=== PATIENT | male | born 1995 | race Caucasian/White ===

== ENCOUNTER 2017-03-14 23:15 | Emergency (ER) | payer OTHER ==
[~2017-03-14 23:15] MED LIST: BENZ200C39 PO
[2017-03-14 23:25] VITALS: BP 146/80
[2017-03-14] MEDS ORDERED: PRED50TA PO (23:48)
[2017-03-14] MEDS ORDERED: FAMO-63 PO (23:48)
[2017-03-14] MEDS ORDERED: DIPH25CA58 PO (23:48)
--- NOTE | 2017-03-14 23:49 | PHYS DOC ---
Past Medical History Past Medical History: Constipation, Diabetes-Type II, GERD, High Cholesterol, Hypertension Additional Past Medical Histor: Knee pain, Seasonal Allergies, ADHD Past Surgical History: Other Additional Past Surgical Histo: RIGHT KNEE SURGERY Alcohol Use: None Drug Use: None Adult General Chief Complaint Chief Complaint: SKIN PROBLEM HPI HPI Patient is a 21 year old male with history of high cholesterol, hypertension, diabetes type 2, who presents today with a rash that began yesterday after he got started on Niacin for high cholesterol. Patient denies any difficulty breathing, denies any tongue or throat swelling. PCP Dr. Denisse Amaya Review of Systems Review of Systems Constitutional: Denies fever or chills [] Eyes: Denies change in visual acuity, redness, or eye pain [] HENT: Denies nasal congestion or sore throat [] Respiratory: Denies cough or shortness of breath [] Cardiovascular: No additional information not addressed in HPI [] GI: Denies abdominal pain, nausea, vomiting, bloody stools or diarrhea [] : Denies dysuria or hematuria [] Musculoskeletal: Denies back pain or joint pain [] Integument: rash Neurologic: Denies headache, focal weakness or sensory changes [] Endocrine: Denies polyuria or polydipsia [] Current Medications Current Medications Current Medications Medications (Trade) Dose Ordered Sig/[place] Start Time Stop Time Status Last Admin Dose Admin Dexamethasone Sodium Phosphate (Decadron) 10 mg 1X ONCE 03/14/17 23:45 03/14/17 23:46 UNV Diphenhydramine HCl (Benadryl) 25 mg 1X ONCE 03/14/17 23:45 03/14/17 23:46 UNV Famotidine (Pepcid) 20 mg 1X ONCE 03/14/17 23:45 03/14/17 23:46 UNV Allergies Allergies Allergies Coded Allergies Type Severity Reaction Last Updated Verified No Known Drug Allergies 07/11/16 No Physical Exam Physical Exam Constitutional: Well developed, well nourished, no acute distress, non-toxic appearance. [] HENT: Normocephalic, atraumatic, bilateral external ears normal, oropharynx moist, no oral exudates, nose normal. [] Eyes: PERRLA, EOMI, conjunctiva normal, no discharge. [] Neck: Normal range of motion, no tenderness, supple, no stridor. [] Cardiovascular:Heart rate regular rhythm, no murmur [] Lungs & Thorax: Bilateral breath sounds clear to auscultation [] Abdomen: Bowel sounds normal, soft, no tenderness, no masses, no pulsatile masses. [] Skin: Patient has erythema on face, bilateral upper extremities and lower extremities. Back: No tenderness, no CVA tenderness. [] Extremities: No tenderness, no cyanosis, no clubbing, ROM intact, no edema. [] Neurologic: Alert and oriented X 3, normal motor function, normal sensory function, no focal deficits noted. [] Psychologic: Affect normal, judgement normal, mood normal. [] Current Patient Data Vital Signs Vital Signs Date Time Temp Pulse Resp B/P (MAP) Pulse Ox O2 Delivery O2 Flow Rate FiO2 03/14/17 23:25 97.4 110 18 99 Room Air 97.4 EKG EKG [] Radiology/Procedures Radiology/Procedures [] Course & Med Decision Making Course & Med Decision Making Pertinent Labs and Imaging studies reviewed. (See chart for details) Patient has a rash that began yesterday after being started on Niacin. He was given Benadryl and Decadron and famotidine in the ED. He was discharged with prednisone, Benadryl, and Pepcid. He was instructed not to take Niacin instructed to contact his own doctor on Thursday and let her know he had an allergic reaction to Niacin. Dragon Disclaimer Dragon Disclaimer This electronic medical record was generated, in whole or in part, using a voice recognition dictation system. Departure Departure Impression: Primary Impression: Allergic reaction caused by a drug Disposition: HOME, SELF-CARE Condition: STABLE Referrals: BONNIE AMAYA MD (PCP) Call your doctor on Thursday and let her know you had an allergic reaction to Niacin Patient Instructions: Drug Allergy, [id number] Additional Instructions: You were seen with an allergic reaction to niacin. Do not take it anymore. Contact your doctor on Thursday let her know you had an, allergic reaction to Niacin. Take Benadryl every 4 hours until the rash clears up, take Pepcid every day until the rash clears up, complete your prednisone. Come back to the ED at any point symptoms worsen or you have new concerning symptoms. Scripts Diphenhydramine Hcl (BENADRYL) 25 Mg Capsule 1 CAP PO Q4HRS W/A Y for RASH, #30 CAP 1 Refill Prov: ALEXA DIAMOND APRN 03/14/17 Prednisone (PREDNISONE) 50 Mg Tablet 1 TAB PO DAILY, #5 TAB Prov: ALEXA DIAMOND APRN 03/14/17 Famotidine (PEPCID) 20 Mg Tablet 20 MG PO DAILY for 7 Days, #7 TAB Prov: ALEXA DIAMOND APRN 03/14/17 Problem Qualifiers Primary Impression: Allergic reaction caused by a drug Encounter type: initial encounter Qualified Codes: T78.40XA - Allergy, unspecified, initial encounter ALEXA DIAMOND APRN March 14, 2017 23:49
[2017-03-14] MEDS ORDERED: FAMOTIDINE 20 MG TABLET. PO ONE (23:55)
[2017-03-14] MEDS ORDERED: DEXAMETHASONE SOD PHOS 20 MG/5 ML VIAL. IM ONE (23:55)
[2017-03-14] MEDS ORDERED: diphenhydrAMINE HCL 25 MG CAPSULE PO ONE (23:55)
== END 2017-03-15 00:13 | disposition home or self-care (01) ==
LOC: ER 03-15 00:01
DX: L27.0 Generalized skin eruption due to drugs and medicaments taken internally (principal); T46.7X5A Adverse effect of peripheral vasodilators, initial encounter; E11.9 Type 2 diabetes mellitus without complications; K21.9 Gastro-esophageal reflux disease without esophagitis; E78.00 Pure hypercholesterolemia, unspecified; I10 Essential (primary) hypertension; F90.9 Attention-deficit hyperactivity disorder, unspecified type; Y92.89 Other specified places as the place of occurrence of the external cause
CPT/HCPCS: 96372; 99283; J1100; Q0163